=== PATIENT | female | born 1975 | race Hispanic/Latino ===

== ENCOUNTER 2018-03-12 19:27 | Emergency (ER) | payer OTHER ==
[2018-03-12] MEDS ORDERED: IPRATROPIUM/ALBUTEROL SULFATE 3 ML SOLUTION IH ONE (20:03)
[2018-03-12 20:13] LABS: BASOPHILS % (AUTO) 0.5 % (0.0-5.0); EOSINOPHILS % (AUTO) 1.3 % (0.0-8.0); HEMATOCRIT 35.3 % (36-48); LYMPHOCYTES % (AUTO) 31.9 % (21.0-51.0); MEAN CORPUSCULAR HGB CONC 32.7 g/dL (32.0-36.0); MEAN CORPUSCULAR VOLUME 88.6 fL (79-99); MONOCYTES % (AUTO) 6.4 % (3.0-13.0); NEUTROPHILS % (AUTO) 59.9 % (40.0-77.0); PLATELET COUNT (AUTO) 236 K/uL (130-400); RED BLOOD CELL COUNT(AUTO) 3.98 MIL/uL (4.00-5.50); RED CELL DISTRIBUTION WIDTH 12.8 % (11.0-15.5); WHITE BLOOD COUNT (AUTO) 4.5 K/uL (4.8-10.8)
[2018-03-12 20:16] LABS: APPEARANCE,URINE Clear (CLEAR); BILIRUBIN,URINE Negative (NEGATIVE); COLOR,URINE Yellow (YELLOW); GLUCOSE, URINE (UA) Negative (NEGATIVE); KETONES,URINE Negative (NEGATIVE); LEUKOCYTE ESTERASE ,URINE Negative (NEGATIVE); NITRATE,URINE Negative (NEGATIVE); OCCULT BLOOD,URINE Negative (NEGATIVE); PROTEIN,URINE Negative (NEGATIVE); UROBILINOGEN,URINE 0.2 mg/dL (0.2-1.0)
[2018-03-12 20:17] LABS: HCG,QUAL RESULT NEGATIVE (NEGATIVE)
[2018-03-12 20:18] LABS: CREATININE 0.6 mg/dL (0.5-1.5); POTASSIUM 3.6 mmol/L (3.5-5.1)
[2018-03-12 20:23] LABS: ALBUMIN 2.9 g/dL (3.5-5.0); BILIRUBIN,TOTAL 0.1 mg/dL (0.2-1.0); TOTAL PROTEIN, SERUM 6.6 g/dL (6.0-8.3)
[2018-03-12 20:33] LABS: CREATINE KINASE, TOTAL 38 U/L (21-232); MYOGLOBIN 14 ng/mL (10-92); TROPONIN I < 0.04 ng/mL (0.00-0.06)
[2018-03-12] MEDS ORDERED: METHYLPREDNISOLONE SOD SUCC 125MG/2ML VIAL ONE (20:47)
[2018-03-12] MEDS ORDERED: ASPIRIN 325 MG TABLET ONE (20:53)
== END 2018-03-12 21:05 | disposition home or self-care (01) ==
LOC: EDH 19:27
DX: J45.21 Mild intermittent asthma with (acute) exacerbation (principal); R07.1 Chest pain on breathing; K74.60 Unspecified cirrhosis of liver; Z72.0 Tobacco use
CPT/HCPCS: 36415; 71045; 80053; 81003; 81025; 82550; 83874; 84484; 85025; 87804 ×2; 93005; 94640; 96374; 99285; J2930

== ENCOUNTER 2018-12-15 16:11 | Emergency (ER) | payer SELFPAY ==
[2018-12-15] MEDS ORDERED: KETOROLAC TROMETHAMINE 60 MG/2 ML VIAL ONE (16:38)
[2018-12-15] MEDS ORDERED: AMOXICILLIN 500 MG CAPSULE PO ONE (16:39)
[2018-12-15] MEDS ORDERED: HYDROCODONE/ACETAMINOPHEN 10/325 MG TAB ONE (16:39)
== END 2018-12-15 17:33 | disposition home or self-care (01) ==
LOC: EDH 16:11
DX: K04.7 Periapical abscess without sinus (principal); H92.09 Otalgia, unspecified ear; R68.84 Jaw pain; K74.60 Unspecified cirrhosis of liver; J45.909 Unspecified asthma, uncomplicated; Z90.49 Acquired absence of other specified parts of digestive tract
CPT/HCPCS: 96372; 99283; J1885